=== PATIENT | male | born 1995 | race Caucasian/White ===

== ENCOUNTER 2018-04-16 22:14 | Emergency (ER) | payer OTHER, MEDICAID | END 2018-04-17 00:16 | disposition home or self-care (01) | LOC: FTE 04-17 00:16 | DX: S39.012A Strain of muscle, fascia and tendon of lower back, initial encounter (principal); R40.2412 Glasgow coma scale score 13-15, at arrival to emergency department; W20.8XXA Other cause of strike by thrown, projected or falling object, initial encounter; Y92.89 Other specified places as the place of occurrence of the external cause | CPT/HCPCS: 20552; 99282-25 ==